=== PATIENT | female | born 1995 | race Caucasian/White ===

== ENCOUNTER 2025-03-14 08:55 | Emergency (ER) | payer MEDICAID ==
[~2025-03-14] VITALS: Ht 162.6 cm; Wt 123.0 kg
[2025-03-14 09:43] VITALS: O2SAT 99
[2025-03-14 10:31] VITALS: BP 133/85; PULSE 89; RESP 18; TEMP 36.7; O2SAT 99
== END 2025-03-14 10:33 | disposition home or self-care (01) ==
LOC: ER 08:55
DX: N64.4 Mastodynia (principal)
CPT/HCPCS: 99282